=== PATIENT | male | born 1975 | race Caucasian/White ===

== ENCOUNTER 2025-03-07 20:31 | Emergency (ER) | payer OTHER ==
[~2025-03-07] VITALS: Ht 190.5 cm; Wt 154.7 kg
[~2025-03-07 20:31] MED LIST: ACET500 PO; FIORINAL 50-321 EACH PO; IBUP800 PO; LORA2 PO; MELO7.5 PO; PARO20 PO
[2025-03-07 20:39] VITALS: BP 164/100
[2025-03-07] MEDS ORDERED: Lidocaine/Tetracaine/Epinephr 3 ML GEL SYRINGE TOP ONE (22:05)
[2025-03-07] MEDS ORDERED: HYDROcodone 5-APAP 325 TAB PO ONE (22:35)
== END 2025-03-07 22:46 | disposition other institution (70) ==
LOC: ER 20:31
DX: S01.01XA Laceration without foreign body of scalp, initial encounter (principal); W20.8XXA Other cause of strike by thrown, projected or falling object, initial encounter; Z79.899 Other long term (current) drug therapy
CPT/HCPCS: 12002; 99282-25; A9270